=== PATIENT | male | born 1945 | race Caucasian/White ===

== ENCOUNTER → 2016-08-08 | Outpatient (CLI) | payer OTHER, BC ==
[~2016-08-08] MED LIST: ACET1TAB84 PO; ASPI81TA28 PO; ATEN25TA PO; ATOR-22 PO; AZAT50TA5 PO; B-COCAP2 PO; CLR/5 PO; FLUO0.0543 EX; KETO0.5S33 OPL; POLYSOL50 OPL; PRED-301 PO; PRED1SUS3 OPL; [UNRECOGNIZED DRUG - OTHER] EX
[2016-08-08 12:30] LABS: ALT/SGPT 31 U/L (12-78); BLOOD UREA NITROGEN 24 mg/dl (7-18); BUN/CREATININE RATIO 23.5 (10-20); CARBON DIOXIDE 29 mmol/L (21-32); CHLORIDE 106 mmol/L (98-107); GLUCOSE 84 mg/dl (70-99); POTASSIUM 4.3 mmol/L (3.5-5.1); SODIUM 141 mmol/L (136-145)
[2016-08-08 12:31] LABS: BASO % 0.2 %; BASO ABS # 0.03 K/uL (0-0.2); COMPLETE YES; EOS % 2.2 %; HEMATOCRIT 39.5 % (42-52); IG% 0.4 %; LYMPH % 4.5 %; LYMPH ABS # 0.62 K/uL (1.2-3.4); MEAN CELL VOLUME 98.8 fL (80-100); MEAN CORPUSCULAR HEMOGLOBIN 32.5 pg (25-34); MEAN CORPUSCULAR HGB CONC 32.9 g/dl (32-36); MEAN PLATELET VOLUME 10.6 fL (7.4-10.4); MONO % 7.7 %; PLATELET COUNT 287 K/uL (130-400); WHITE BLOOD COUNT 13.75 K/uL (4.8-10.8)
[2016-08-08 12:33] LABS: ALKALINE PHOSPHATASE 67 U/L (45-117); AST/SGOT 25 U/L (15-37)
[2016-08-08 12:35] LABS: CHOLESTEROL/HDL RATIO 2.6
--- NOTE | 2016-08-13 11:20 | CODING QUERY MEDICAL NECESSITY ---
SUPPORTING DIAGNOSIS NEEDED Dr. Lester, A supporting diagnosis is required for the test/procedure performed on this patient in order for us to be reimbursed by the patient's insurance. Please provide a supporting diagnosis for the following test/procedure listed below next to the test name along with your signature. *If there is no additional diagnosis for this patient that would support the following test/procedure please document that below next to the test/procedure. Test(s)/Procedure(s) that require a supporting diagnosis: * ([id number]) VITAMIN D ASSAY DIAGNOSIS: DATE OF SERVICE: 08/08/16 Provider Signature: Date: Thank you [facility] Information Management Once completed, please kindly fax back to [phone] For questions please call [phone]
== END | disposition home or self-care (01) ==
LOC: C.LABPVFM 08:23
PROVIDERS: ATTEND Internal Medicine Cardiovascular Disease
DX: I25.10 Atherosclerotic heart disease of native coronary artery without angina pectoris (principal); I10 Essential (primary) hypertension; E78.00 Pure hypercholesterolemia, unspecified; Z13.21 Encounter for screening for nutritional disorder; Z98.61 Coronary angioplasty status; E55.9 Vitamin D deficiency, unspecified

== ENCOUNTER → 2017-01-29 | Outpatient (CLI) | payer OTHER, BC ==
[2017-01-29 13:49] LABS: CHOLESTEROL/HDL RATIO 2.4
== END | disposition home or self-care (01) ==
LOC: C.LABPVFM 08:24
PROVIDERS: ATTEND Internal Medicine Cardiovascular Disease
DX: E55.9 Vitamin D deficiency, unspecified (principal); E78.00 Pure hypercholesterolemia, unspecified

== ENCOUNTER → 2017-08-05 | Outpatient (CLI) | payer OTHER, BC ==
[~2017-08-05] MED LIST changes: +AZAT50TA33 PO; -AZAT50TA5 PO
== END | disposition home or self-care (01) ==
LOC: C.LABPVFM 08:39
PROVIDERS: ATTEND Internal Medicine Cardiovascular Disease
DX: I25.10 Atherosclerotic heart disease of native coronary artery without angina pectoris (principal); Z98.61 Coronary angioplasty status

== ENCOUNTER → 2018-01-15 | Outpatient (CLI) | payer OTHER, BC | END | disposition home or self-care (01) | LOC: C.LABPVFM 13:36 | PROVIDERS: ATTEND Family Medicine | DX: E55.9 Vitamin D deficiency, unspecified (principal) ==